=== PATIENT | female | born 1990 | race Caucasian/White ===

== ENCOUNTER 2020-01-27 13:59 | Inpatient (IN) | payer BC, OTHER, SELFPAY ==
[2020-01-27 14:00] VITALS: BP 135/84; PULSE 119; RESP 18; TEMP 37.7; O2SAT 97; BMI 20.2
[2020-01-27] MEDS: SODIUM CHLORIDE 0.9% 1,000 ML 150 ML IV (14:00)
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
[2020-01-27 14:21] LABS: Add Manual Diff / Slide Review NO; Basophils Absolute Auto 0 /uL (0-100); Basophils Percent Auto 0.1 % (0-2); Eosinophils Absolute Auto 0 /uL (0-450); Hematocrit 31.1 % (36-46); Hemoglobin 11.2 g/dL (12.0-16.0); Lymphocytes Absolute Auto 1200 /uL (1100-4500); Lymphocytes Percent Auto 8.1 % (25-40); Mean Corpuscular HGB Conc 35.9 % (30-36); Mean Corpuscular Volume 91.8 fL (80-100); Monocytes Absolute Auto 2100 /uL (0-900); Neutrophils Absolute Auto 11500 /uL (1500-7000); Neutrophils Percent Auto 77.8 % (50-75); Platelet Count 322 X10^3/uL (150-400); Red Blood Cell Count 3.39 X10^6/uL (4.0-5.2); Red Cell Distribution Width 13.3 % (11.6-14.8); White Blood Cell Count 14.8 X10^3/uL (4.5-11.0)
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
[2020-01-27 14:22] LABS: Prothrombin Time 11.4 SECONDS (10.1-12.7)
[2020-01-27 14:25] LABS: PTT Partial Thromboplastin Tim 25 SECONDS (26.4-36.2)
[2020-01-27 14:27] LABS: Alanine Aminotransferase 101 IU/L (<35); Albumin 4.9 g/dL (3.5-5.0); Albumin Globulin Ratio 1.4 (1.0-2.8); Alkaline Phosphatase 54 U/L (38-126); Aspartate Aminotransferase 381 IU/L (14-36); BUN Creatinine Ratio 15.9 (6-22); Bilirubin Total 0.8 mg/dL (0.2-1.3); Blood Urea Nitrogen 60 mg/dL (7-17); Calcium 8.1 mg/dL (8.4-10.2); Carbon Dioxide 22 mmol/L (22-32); Chloride 95 mmol/L (98-107); Estimated Glomerular Filt Rate 14.2 mL/min (>60); Ethanol (ETOH) < 10 mg/dL; Globulin 3.5 g/dL (1.7-4.1); Glucose 156 mg/dL (70-100); HEMOLYSIS < 15 (0-50); Lactate (Lactic Acid) 1.9 mmol/L (0.7-2.1); Lipase 124 U/L (23-300); Potassium 5.2 mmol/L (3.4-5.1); Sodium 133 mmol/L (137-145); Total Protein 8.4 g/dL (6.3-8.2)
[2020-01-27 14:34] LABS: Lactate Dehydrogenase 4190 U/L (313-618)
[2020-01-27] MEDS: TET,DIPH,PERTUSS(ACELL),VAC/PF 0.5 ML SYRINGE IM (15:54)
[2020-01-27] MEDS: PIPERACILLIN-TAZO 4.5 GM/100 ML FROZ.PIGGY IV (15:56)
[2020-01-27] MEDS: SODIUM CHLORIDE 0.9% 1,000 ML 2000 ML IV (15:57)
[2020-01-27 16:00] VITALS: BP 118/73; PULSE 92; RESP 12; O2SAT 99
[2020-01-27] MEDS: PROPARACAINE 0.5% OPHTH SOL 1 DROPS EYE-BOTH (16:10)
--- NOTE | 2020-01-27 16:26 | PC.NURSE ---
Patient reports she wears bilateral contact lenses. Attempted to open patients eyes with administration of numbing medication unable to open them enough to see contacts due to swelling. Provider aware.
[2020-01-27] MEDS: VANCOMYCIN 1,000 MG/200 ML PIGGYBACK 200 MG IV (16:50)
[2020-01-27 17:00] VITALS: BP 116/65; PULSE 96; RESP 12; O2SAT 98
[2020-01-27 17:01] LABS: HCO3 VBG 19 mmol/L (23-28); PCO2 VBG 33.6 mmHg (45-50); PO2 VBG 51 mmHg (35-45); pH VBG 7.37 (7.33-7.43)
[2020-01-27 17:02] LABS: Total CO2 VBG 20 mmol/L (24-29)
[2020-01-27 17:04] LABS: Oxygen Saturation VBG 85 % (70-75)
[2020-01-27] MEDS: DEXTROSE 50 % IN WATER 25 GM/50 ML SYRINGE IV (17:07)
[2020-01-27] MEDS: INSULIN REGULAR 100 UNIT/ML 3 ML VIAL 10 UNIT IV (17:07)
[2020-01-27 17:12] LABS: Creatine Kinase 25825 U/L (30-135); Troponin I 0.108 ng/mL (0.01-0.034)
[2020-01-27] MEDS: ALBUTEROL 2.5 MG/3 ML NEB (ADULT) 10 MG INH (17:16)
[2020-01-27 17:43] VITALS: PULSE 110; RESP 16; O2SAT 99
[2020-01-27 17:57] VITALS: BP 122/71; PULSE 108; RESP 18; TEMP 37.2; O2SAT 100
[2020-01-27 19:28] VITALS: BMI 20.2
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
[2020-01-27] MEDS: SODIUM CHLORIDE 0.9% 1,000 ML 200 ML IV (21:29)
[2020-01-27 21:50] VITALS: BP 132/77; PULSE 98; RESP 17; TEMP 37.1; O2SAT 100
[2020-01-28] VITALS (7 sets, daily range): BP systolic 123–141; BP diastolic 75–88; PULSE 48–92; RESP 15–26; TEMP 36.4–37; O2SAT 98–100
[2020-01-28] MEDS: SODIUM CHLORIDE 0.9% 1,000 ML 200 ML IV (03:05)
--- NOTE | 2020-01-28 04:25 | PC.NURSE ---
Addendum entered by Kae Veliz R.N. 01/28/20 06:23: Late entry: Patient c/o stomach pain, abdomen does not appear distended and patient reports it's not bladder pain. Addendum entered by Kae Veliz R.N. 01/28/20 06:16: Notified Dr Boles of critical value: Calcium 6.3 and Hematacrit 20.8. Also notified coordinator of lab values. Addendum entered by Kae Veliz R.N. 01/28/20 05:07: To note: patient has tongue piercing, naval piercing, and clitoral delatorre piercing. BS est: 279, no urge to go Dressing to head/eye changed. Moistened gauze to eyelid wrapped in kerlix. Original Note: Patient's eyes are swollen shut, visually impaired (sensory deficit). Alert to name, awakes to name and touch, too tired to complete full orientation questions, allowing patient to rest at this time. In a view room for safety, call light modified for use. Facial trauma, eyes swollen shut, dried blood on face, lips are edematous. Teeth appear to be intact. Bandage around top of head obscures full face. Extensive trauma/ecchymosis/edema to face, anterior trunk, lower bilat arms, and legs. Denies SOB, saturating on RA. Snoring might be associated with facial edema. Patient in PHAN d/t dehydration/rhabdo, has not made urine at time of assessment. Aggressive fluid rehydration Patient has been restless this shift. Constantly turning self in bed but refuses to directly admit to pain just states I cannot get comfortably and reporting back discomfort. At time of assessment denied nausea but had been vomiting prior to change of shift. C/o nausea around 0415, notified Dr Boles of patient's nausea and c/o discomfort, new orders given verbally. Medicated per OCT for nausea first. Swelling to face has increased over shift and dressing (kerlix) covering laceration to eye is saturated and will be changed on this shift. Patient can make needs know but appears to be resting between restless episodes. Denies the urge to void, BS at change of shift was 105, will scan again at 0500 if urge does not occur. High fall risk d/t current status, bed alarm on and functioning, patient looses track of call light due to visual deficit and constant turning in bed, in a view room and did call for help when unable to locate call light.
[2020-01-28] MEDS: ONDANSETRON 4 MG/2 ML INJ (04:26)
[2020-01-28] MEDS: HYDROCODONE/ACET 5/325 TABLET 1 TAB PO (04:43)
[2020-01-28 05:28] LABS: Bacteria Urine None Seen; WBC Urine None Seen (0-5/HPF)
[2020-01-28 05:31] LABS: Basophils Absolute Auto 0 /uL (0-100); Eosinophils Absolute Auto 0 /uL (0-450); Hemoglobin 7.3 g/dL (12.0-16.0); Lymphocytes Absolute Auto 1400 /uL (1100-4500); Lymphocytes Percent Auto 13.8 % (25-40); Mean Corpuscular Volume 94.4 fL (80-100); Monocytes Absolute Auto 1300 /uL (0-900); Monocytes Percent Auto 12.7 % (3-14); Neutrophils Absolute Auto 7400 /uL (1500-7000); Neutrophils Percent Auto 73.5 % (50-75); Platelet Count 170 X10^3/uL (150-400); Red Cell Distribution Width 13.6 % (11.6-14.8); White Blood Cell Count 10.1 X10^3/uL (4.5-11.0)
[2020-01-28 05:36] LABS: Appearance Urine UA CLEAR; Bilirubin Urine UA NEGATIVE (NEGATIVE); Color Urine UA YELLOW; Glucose Urine UA NEGATIVE (Negative); Ketones Urine UA NEGATIVE (NEGATIVE); Leukocyte Esterase Urine UA NEGATIVE (NEGATIVE); Nitrite Urine UA NEGATIVE (Negative); Occult Blood Urine UA 3+ (Negative); Protein Urine UA 2+ (Negative); Urobilinogen Urine UA 0.2 E.U./dL (0.2)
[2020-01-28 05:37] LABS: Pregnancy Test Urine Negative (Negative); UR Morphine/Opiate cutoff 300 Negative (Negative); Ur Creatinine Normal (Normal); Ur Specific Gravity Normal (Normal); Urine Amphetamines Negative (Negative); Urine Barbiturates Negative (Negative); Urine Benzodiazepines Negative (Negative); Urine Cocaine Negative (Negative); Urine MDMA Negative (Negative); Urine Methadone Negative (Negative); Urine Methamphetamines Negative (Negative); Urine Phencyclidine Negative (Negative); Urine Tetrahydrocannabinol Negative (Negative); Urine Tricyclic Antidepressant Negative (Negative); Urine pH Normal (Normal)
[2020-01-28 05:38] LABS: Urine Oxycodone Negative (Negative)
[2020-01-28 05:41] LABS: Amorphous Sediment Urine 1+; Culture Indicated Urine Cult Not Indicated; RBC Urine 1-5/HPF (0-5/HPF); Squamous Epithelial Cell Urine 5-10 /HPF (0-5/HPF)
[2020-01-28 05:49] LABS: BUN Creatinine Ratio 12.7 (6-22); Blood Urea Nitrogen 64 mg/dL (7-17); Carbon Dioxide 17 mmol/L (22-32); Chloride 105 mmol/L (98-107); Estimated Glomerular Filt Rate 10.1 mL/min (>60); Glucose 97 mg/dL (70-100); HEMOLYSIS < 15 (0-50); Potassium 4.8 mmol/L (3.4-5.1); Sodium 133 mmol/L (137-145)
[2020-01-28 06:01] LABS: Troponin I 0.118 ng/mL (0.01-0.034)
[2020-01-28 06:06] LABS: Creatine Kinase 18644 U/L (30-135)
[2020-01-28 06:13] LABS: Calcium 6.3 mg/dL (8.4-10.2)
[2020-01-28 06:15] LABS: Hematocrit 20.8 % (36-46)
[2020-01-28 06:16] LABS: Add Manual Diff / Slide Review NO
[2020-01-28] MEDS: SODIUM BICARB IV (06:55)
[2020-01-28] MEDS: LACTATED RINGERS IV (06:55)
[2020-01-28 06:58] LABS: HCO3 ABG 16 mmol/L (22-26); PCO2 ABG 31.1 mmHg (35-45); PO2 ABG 99 mmHg (80-100); TCO2 ABG 17 mmol/L (21-31); pH ABG 7.32 (7.35-7.45)
[2020-01-28 06:59] LABS: Oxygen Saturation ABG 97 % (95-100)
[2020-01-28 07:00] LABS: Fractionated Inspired Oxygen 21
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
[2020-01-28] MEDS: CALCIUM GLUCONATE 4.65 MEQ in SODIUM CHLORIDE 0.9% 50 ML 60 ML IV (08:16)
[2020-01-28] MEDS: SODIUM BICARB 8.4% VIAL 100 MEQ in DEXTROSE 5% WATER 1,000 ML 200 MEQ IV (08:33)
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
[2020-01-28 10:43] LABS: COVID19 -Nasal RAPID Negative (Negative)
[2020-01-28] MEDS: ONDANSETRON 4 MG/2 ML INJ IV (11:16)
[2020-01-28] MEDS: fentaNYL 100 MCG/2 ML INJ 50 MCG IV (12:54)
[2020-01-28] MEDS: GENTAMICIN 0.1% 1 APPLIC TOP (12:55)
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
== END 2020-01-28 13:05 | disposition short-term general hospital (02) | DRG 565 ==
LOC: ED 16:41 → AC 17:34 → ICU 01-28 08:04 → AC 01-29 09:00 → ICU 01-29 09:00
PROVIDERS: Family Medicine; Admitting Provider Internal Medicine; Emergency Provider Emergency Medicine; PCP Physician Assistant; Referring Provider Emergency Medicine; Visit Provider Internal Medicine
DX: T79.6XXA Traumatic ischemia of muscle, initial encounter (principal); N17.9 Acute kidney failure, unspecified; D62 Acute posthemorrhagic anemia; E87.5 Hyperkalemia; F10.20 Alcohol dependence, uncomplicated; S01.111A Laceration without foreign body of right eyelid and periocular area, initial encounter; F41.9 Anxiety disorder, unspecified; F32.9 Major depressive disorder, single episode, unspecified; R79.89 Other specified abnormal findings of blood chemistry; X58.XXXA Exposure to other specified factors, initial encounter
CPT/HCPCS: 36415; 36430; 36600; 70450; 70486; 71260; 72125; 74177; 80048; 80053; 80305; 80320; 81001; 81025; 82550; 82805; 83605; 83615; 83690; 84484; 85025; 85610; 85730; 86850; 86900; 86901; 87040; 87635; 87797; 90471; 93005; 94640; 96365; 96368; 99285; P9016; 90715; J0610; J2405; J2543; J3010; J7613; Q9967

== ENCOUNTER → 2020-02-12 14:51 | Outpatient (CLI) | payer BC, SELFPAY ==
[2020-01-27 19:28] VITALS: BMI 20.2
[2020-02-12 15:03] LABS: RBC Urine None Seen (0-5/HPF); WBC Urine None Seen (0-5/HPF)
[2020-02-12 15:49] LABS: Add Manual Diff / Slide Review NO; Basophils Absolute Auto 100 /uL (0-100); Basophils Percent Auto 2.3 % (0-2); Eosinophils Absolute Auto 200 /uL (0-450); Eosinophils Percent Auto 2.7 % (2-4); Hematocrit 31.9 % (36-46); Hemoglobin 11.1 g/dL (12.0-16.0); Lymphocytes Absolute Auto 1500 /uL (1100-4500); Lymphocytes Percent Auto 26.8 % (25-40); Mean Corpuscular HGB Conc 34.7 % (30-36); Mean Corpuscular Hemoglobin 32.1 PG (26-34); Mean Corpuscular Volume 92.6 fL (80-100); Monocytes Absolute Auto 700 /uL (0-900); Monocytes Percent Auto 11.9 % (3-14); Neutrophils Absolute Auto 3200 /uL (1500-7000); Neutrophils Percent Auto 56.3 % (50-75); Platelet Count 520 X10^3/uL (150-400); Red Blood Cell Count 3.45 X10^6/uL (4.0-5.2); Red Cell Distribution Width 13.4 % (11.6-14.8); White Blood Cell Count 5.7 X10^3/uL (4.5-11.0)
[2020-02-12 16:06] LABS: Alanine Aminotransferase 34 IU/L (<35); Albumin Globulin Ratio 1.4 (1.0-2.8); Alkaline Phosphatase 38 U/L (38-126); Aspartate Aminotransferase 37 IU/L (14-36); BUN Creatinine Ratio 18.2 (6-22); Bilirubin Total 0.6 mg/dL (0.2-1.3); Blood Urea Nitrogen 25 mg/dL (7-17); Calcium 10.4 mg/dL (8.4-10.2); Carbon Dioxide 27 mmol/L (22-32); Chloride 102 mmol/L (98-107); Estimated Glomerular Filt Rate 45.6 mL/min (>60); Globulin 3.5 g/dL (1.7-4.1); Glucose 71 mg/dL (70-100); Potassium 4.5 mmol/L (3.4-5.1); Sodium 139 mmol/L (137-145); Total Protein 8.5 g/dL (6.3-8.2)
[2020-02-12 16:07] LABS: HEMOLYSIS 72 (0-50)
[2020-02-12 16:35] LABS: TSH w/ Reflex to FT4 1.97 uIU/mL (0.47-4.68)
[2020-02-12 18:34] LABS: Appearance Urine UA CLEAR; Bilirubin Urine UA NEGATIVE (NEGATIVE); Color Urine UA YELLOW; Glucose Urine UA NEGATIVE (Negative); Ketones Urine UA NEGATIVE (NEGATIVE); Leukocyte Esterase Urine UA NEGATIVE (NEGATIVE); Nitrite Urine UA NEGATIVE (Negative); Occult Blood Urine UA NEGATIVE (Negative); Protein Urine UA NEGATIVE (Negative); Urobilinogen Urine UA 0.2 E.U./dL (0.2)
[2020-02-12 18:36] LABS: pH Urine UA 5.5 (4.5-8.0)
[2020-02-12 18:54] LABS: Bacteria Urine Occasional (0-1); Culture Indicated Urine Cult Not Indicated; Squamous Epithelial Cell Urine 0-1 /HPF (0-5/HPF); Urine Comments Microscopic Normal
[2020-02-12 18:58] LABS: Creatinine Urine Random 56.6 mg/dL
[2020-02-12 19:03] LABS: Microalbumi Creatinin Ratio Ur 15.9 ug/mg CR (<30); Microalbumin Urine Random 0.9 mg/dL (0-1.6)
== END ==
PROVIDERS: PCP Physician Assistant; Referring Provider Registered Nurse Diabetes Educator; Visit Provider Registered Nurse Diabetes Educator
DX: F32.9 Major depressive disorder, single episode, unspecified (principal); F41.9 Anxiety disorder, unspecified; N17.9 Acute kidney failure, unspecified; S00.03XA Contusion of scalp, initial encounter; S00.83XA Contusion of other part of head, initial encounter; S10.93XA Contusion of unspecified part of neck, initial encounter; T79.6XXA Traumatic ischemia of muscle, initial encounter
CPT/HCPCS: 36415; 80053; 81001; 82043; 82570; 84443; 85025

== ENCOUNTER → 2020-02-20 16:35 | Outpatient (CLI) | payer BC, OTHER, SELFPAY ==
[2020-01-27 19:28] VITALS: BMI 20.2
[2020-02-20 17:24] LABS: Add Manual Diff / Slide Review NO; Basophils Absolute Auto 100 /uL (0-100); Basophils Percent Auto 1.2 % (0-2); Eosinophils Absolute Auto 300 /uL (0-450); Eosinophils Percent Auto 3.6 % (2-4); Hematocrit 33.5 % (36-46); Hemoglobin 11.4 g/dL (12.0-16.0); Lymphocytes Absolute Auto 2100 /uL (1100-4500); Mean Corpuscular HGB Conc 33.9 % (30-36); Mean Corpuscular Hemoglobin 31.1 PG (26-34); Mean Corpuscular Volume 91.6 fL (80-100); Monocytes Absolute Auto 600 /uL (0-900); Monocytes Percent Auto 9.2 % (3-14); Neutrophils Absolute Auto 3900 /uL (1500-7000); Platelet Count 367 X10^3/uL (150-400); Red Blood Cell Count 3.65 X10^6/uL (4.0-5.2); Red Cell Distribution Width 12.9 % (11.6-14.8)
[2020-02-20 17:30] LABS: HEMOLYSIS < 15 (0-50); Sodium 139 mmol/L (137-145)
[2020-02-20 17:32] LABS: Alanine Aminotransferase 21 IU/L (<35); Albumin 5.3 g/dL (3.5-5.0); Albumin Globulin Ratio 1.6 (1.0-2.8); Alkaline Phosphatase 56 U/L (38-126); Aspartate Aminotransferase 26 IU/L (14-36); BUN Creatinine Ratio 10.6 (6-22); Bilirubin Total 0.4 mg/dL (0.2-1.3); Blood Urea Nitrogen 10 mg/dL (7-17); Calcium 10.7 mg/dL (8.4-10.2); Carbon Dioxide 25 mmol/L (22-32); Chloride 102 mmol/L (98-107); Estimated Glomerular Filt Rate > 60.0 mL/min (>60); Globulin 3.3 g/dL (1.7-4.1); Glucose 85 mg/dL (70-100); Potassium 4.5 mmol/L (3.4-5.1); Total Protein 8.6 g/dL (6.3-8.2)
== END ==
PROVIDERS: PCP Registered Nurse Diabetes Educator; Referring Provider Registered Nurse Diabetes Educator; Visit Provider Registered Nurse Diabetes Educator
DX: N17.9 Acute kidney failure, unspecified (principal)
CPT/HCPCS: 36415; 80053; 85025

== ENCOUNTER → 2020-04-17 13:57 | Outpatient (CLI) | payer BC, OTHER, SELFPAY ==
[2020-04-17 15:53] LABS: Urine N gonorrhoeae NOT DETECTED
[2020-04-17 15:58] LABS: Urine Chlamydia NOT DETECTED
[2020-04-17 16:29] LABS: Add Manual Diff / Slide Review NO; Basophils Absolute Auto 100 /uL (0-100); Basophils Percent Auto 0.6 % (0-2); Eosinophils Absolute Auto 100 /uL (0-450); Eosinophils Percent Auto 0.6 % (2-4); Hematocrit 39.5 % (36-46); Hemoglobin 13.6 g/dL (12.0-16.0); Lymphocytes Absolute Auto 1800 /uL (1100-4500); Lymphocytes Percent Auto 20.3 % (25-40); Mean Corpuscular HGB Conc 34.5 % (30-36); Mean Corpuscular Hemoglobin 31.7 PG (26-34); Mean Corpuscular Volume 91.9 fL (80-100); Monocytes Absolute Auto 500 /uL (0-900); Monocytes Percent Auto 5.3 % (3-14); Neutrophils Absolute Auto 6500 /uL (1500-7000); Neutrophils Percent Auto 73.2 % (50-75); Platelet Count 392 X10^3/uL (150-400); Red Blood Cell Count 4.29 X10^6/uL (4.0-5.2); Red Cell Distribution Width 13.1 % (11.6-14.8); White Blood Cell Count 8.9 X10^3/uL (4.5-11.0)
[2020-04-17 16:44] LABS: Alanine Aminotransferase 29 IU/L (<35); Albumin 5.3 g/dL (3.5-5.0); Albumin Globulin Ratio 1.3 (1.0-2.8); Alkaline Phosphatase 54 U/L (38-126); Aspartate Aminotransferase 32 IU/L (14-36); Bilirubin Total 0.3 mg/dL (0.2-1.3); Blood Urea Nitrogen 14 mg/dL (7-17); Calcium 10.3 mg/dL (8.4-10.2); Carbon Dioxide 22 mmol/L (22-32); Chloride 102 mmol/L (98-107); Estimated Glomerular Filt Rate > 60.0 mL/min (>60); Glucose 86 mg/dL (70-100); HEMOLYSIS < 15 (0-50); Potassium 3.5 mmol/L (3.4-5.1); Sodium 139 mmol/L (137-145); Total Protein 9.3 g/dL (6.3-8.2)
[2020-04-18 07:18] LABS: Hepatitis B Core AB w/Reflex Negative (Negative); RPR Screen Non Reactive (Non Reactive)
[2020-04-18 15:33] LABS: Hepatitis B Surface Antigen NEGATIVE s/c (NEGATIVE)
[2020-04-18 15:53] LABS: HIV 1 & 2 Ab/Ag 4th Gen Combo NEGATIVE (NEGATIVE); Hep C Virus Ab w/Reflex Quant NEGATIVE s/c (NEGATIVE)
== END ==
PROVIDERS: PCP Registered Nurse Diabetes Educator; Referring Provider Registered Nurse Diabetes Educator; Visit Provider Registered Nurse Diabetes Educator
DX: N17.9 Acute kidney failure, unspecified (principal); Z72.51 High risk heterosexual behavior
CPT/HCPCS: 36415; 80053; 85025; 86592; 86704; 86803; 87340; 87389; 87491; 87591